=== PATIENT | female | born 1970 | race Caucasian/White ===

== ENCOUNTER 2018-11-08 07:45 | Emergency (ER) | payer OTHER ==
[~2018-11-08] VITALS: Ht 162.5 cm; Wt 81.6 kg
[2018-11-08 08:30] LABS: BASO % 0.7 % (0.0-1.0); EOS # 0.2 10*3/uL (0.0-0.4); EOS % 3.1 % (1.0-4.0); HEMOGLOBIN 14.6 g/dl (12.0-16.0); LYMPH # 1.2 10*3/uL (1.3-4.4); LYMPH % 22.2 % (27.0-41.0); MEAN CELL VOLUME 95.3 fl (81.0-99.0); MEAN CORPUSCULAR HGB 32.4 pg (27.0-31.0); MEAN PLATELET VOLUME 9.7 fl (9.6-12.3); MONO # 0.4 10*3/uL (0.1-1.0); MONO % 7.8 % (3.0-9.0); NEUT # 3.5 10*3/uL (2.3-7.9); NEUT % 65.6 % (47.0-73.0); PLATELET COUNT AUTOMATED 225 10*3/uL (130-400); RED BLOOD COUNT 4.51 10*6/uL (4.10-5.10); RED CELL DISTRI WIDTH 12.5 % (0-14.5); WHITE BLOOD COUNT 5.4 10*3/uL (4.8-10.8)
[2018-11-08 08:41] LABS: BUN 11 mg/dl (7-24); CHLORIDE 107 mmol/L (98-107); CREATININE 0.84 mg/dL (0.55-1.02); POTASSIUM 3.5 mmol/L (3.5-5.1); SODIUM 137 mmol/L (136-145); URIC ACID 4.3 mg/dL (2.6-6.0)
[2018-11-08] MEDS ORDERED: INDOMETHACIN50 MG PO (09:12)
== END 2018-11-08 09:16 | disposition home or self-care (01) ==
LOC: ED 07:45
PROVIDERS: Podiatrist Foot & Ankle Surgery
DX: M25.561 Pain in right knee (principal); Z88.2 Allergy status to sulfonamides; Z88.6 Allergy status to analgesic agent

== ENCOUNTER 2019-04-21 17:44 | Emergency (ER) | payer OTHER ==
[~2019-04-21 17:44] MED LIST: INDOMETHACIN50 MG PO
== END 2019-04-21 19:21 | disposition home or self-care (01) ==
LOC: ED 17:44
DX: B27.90 Infectious mononucleosis, unspecified without complication (principal); R59.0 Localized enlarged lymph nodes; Z88.2 Allergy status to sulfonamides; Z88.6 Allergy status to analgesic agent

== ENCOUNTER 2019-08-24 11:02 | Emergency (ER) | payer OTHER ==
[~2019-08-24] VITALS: Ht 165.1 cm; Wt 81.6 kg
[2019-08-24] MEDS ORDERED: LIDEX 0.05% CRE15 GM T ×2 (12:00→12:01)
== END 2019-08-24 12:04 | disposition home or self-care (01) ==
LOC: ED 11:02
DX: R21 Rash and other nonspecific skin eruption (principal); Z88.8 Allergy status to other drugs, medicaments and biological substances; Z88.2 Allergy status to sulfonamides

== ENCOUNTER 2019-10-11 14:33 | Emergency (ER) | payer OTHER ==
[~2019-10-11] VITALS: Ht 160 cm; Wt 74.8 kg
[~2019-10-11 14:33] MED LIST changes: +LIDEX 0.05% CRE15 GM T
== END 2019-10-11 16:24 | disposition home or self-care (01) ==
LOC: ED 14:33
DX: S09.90XA Unspecified injury of head, initial encounter (principal); R42 Dizziness and giddiness; R11.0 Nausea; Z88.2 Allergy status to sulfonamides; Z88.6 Allergy status to analgesic agent; W22.8XXA Striking against or struck by other objects, initial encounter; Y93.89 Activity, other specified; Y92.89 Other specified places as the place of occurrence of the external cause; Y99.8 Other external cause status

== ENCOUNTER 2020-02-26 23:01 | Emergency (ER) | payer OTHER ==
[~2020-02-26] VITALS: Ht 162.5 cm; Wt 74.8 kg
[2020-02-26] MEDS ORDERED: PROAIR HFA8.5 GM INH (23:30)
[2020-02-26] MEDS ORDERED: AIRDUO DIGIHAL1 EACH INH (23:30)
== END 2020-02-27 02:22 | disposition home or self-care (01) ==
LOC: ED 23:01
DX: S46.911A Strain of unspecified muscle, fascia and tendon at shoulder and upper arm level, right arm, initial encounter (principal); S46.812A Strain of other muscles, fascia and tendons at shoulder and upper arm level, left arm, initial encounter; Z88.2 Allergy status to sulfonamides; Z88.6 Allergy status to analgesic agent; W22.8XXA Striking against or struck by other objects, initial encounter; Y93.89 Activity, other specified; Y92.89 Other specified places as the place of occurrence of the external cause; Y99.0 Civilian activity done for income or pay

== ENCOUNTER 2020-05-09 12:58 | Emergency (ER) | payer OTHER ==
[~2020-05-09] VITALS: Ht 165.1 cm; Wt 857.3 kg
[~2020-05-09 12:58] MED LIST changes: +AIRDUO DIGIHAL1 EACH INH; +PROAIR HFA8.5 GM INH
[2020-05-09] MEDS ORDERED: IBU800 MG PO (15:03)
== END 2020-05-09 15:13 | disposition home or self-care (01) ==
LOC: ED 12:58
DX: S86.911A Strain of unspecified muscle(s) and tendon(s) at lower leg level, right leg, initial encounter (principal); Z88.2 Allergy status to sulfonamides; Z88.6 Allergy status to analgesic agent; Z79.899 Other long term (current) drug therapy; Z98.890 Other specified postprocedural states; X50.0XXA Overexertion from strenuous movement or load, initial encounter; Y93.89 Activity, other specified; Y92.89 Other specified places as the place of occurrence of the external cause; Y99.8 Other external cause status

== ENCOUNTER 2020-07-09 20:31 | Emergency (ER) | payer OTHER ==
[~2020-07-09 20:31] MED LIST changes: +IBU800 MG PO
[2020-07-09] MEDS ORDERED: CYCLOBENZAPRINE5 M3 PO (23:10)
[2020-07-09] MEDS ORDERED: MEDROL DOSEPAK4 MG PO (23:10)
[2020-07-09] MEDS ORDERED: Motrin,Rufen800 MG PO (23:10)
== END 2020-07-10 00:01 | disposition home or self-care (01) ==
LOC: ED 20:31
DX: M54.16 Radiculopathy, lumbar region (principal); M79.605 Pain in left leg; Z88.2 Allergy status to sulfonamides; Z79.899 Other long term (current) drug therapy; Z98.890 Other specified postprocedural states

== ENCOUNTER → 2020-08-27 | Outpatient (CLI) | payer OTHER ==
[~2020-08-27] MED LIST changes: +CYCLOBENZAPRINE5 M3 PO; +MEDROL DOSEPAK4 MG PO; +Motrin,Rufen800 MG PO
== END | disposition home or self-care (01) ==
LOC: RAD 08:03
PROVIDERS: ATTEND Nurse Practitioner Family
DX: M16.12 Unilateral primary osteoarthritis, left hip (principal); M25.752 Osteophyte, left hip

== ENCOUNTER 2020-10-21 00:57 | Emergency (ER) | payer OTHER ==
[~2020-10-21] VITALS: Ht 162.5 cm; Wt 77.1 kg
== END 2020-10-21 08:21 | disposition home or self-care (01) ==
LOC: ED 00:57
DX: M79.651 Pain in right thigh (principal); M79.604 Pain in right leg; Z88.2 Allergy status to sulfonamides; Z88.6 Allergy status to analgesic agent; X58.XXXA Exposure to other specified factors, initial encounter; Y93.89 Activity, other specified; Y92.89 Other specified places as the place of occurrence of the external cause; Y99.8 Other external cause status

== ENCOUNTER 2021-09-08 11:44 | Emergency (ER) | payer OTHER ==
[~2021-09-08] VITALS: Wt 81.6 kg
== END 2021-09-08 14:08 | disposition home or self-care (01) ==
LOC: ED 11:44
DX: S46.911A Strain of unspecified muscle, fascia and tendon at shoulder and upper arm level, right arm, initial encounter (principal); Z88.2 Allergy status to sulfonamides; Z88.6 Allergy status to analgesic agent; Z79.899 Other long term (current) drug therapy; Z98.890 Other specified postprocedural states; Z90.89 Acquired absence of other organs; X50.0XXA Overexertion from strenuous movement or load, initial encounter; Y93.89 Activity, other specified; Y92.69 Other specified industrial and construction area as the place of occurrence of the external cause; Y99.0 Civilian activity done for income or pay

== ENCOUNTER 2022-06-14 09:20 | Emergency (ER) | payer OTHER ==
[~2022-06-14] VITALS: Ht 160 cm; Wt 77.1 kg
[2022-06-14] MEDS ORDERED: ERYTHROMYCIN OPH1 GM OPH (09:49)
== END 2022-06-14 09:51 | disposition home or self-care (01) ==
LOC: ED 09:20
DX: H01.005 Unspecified blepharitis left lower eyelid (principal); Z88.2 Allergy status to sulfonamides; Z88.6 Allergy status to analgesic agent; Z88.5 Allergy status to narcotic agent; Z90.89 Acquired absence of other organs; Z98.890 Other specified postprocedural states; Z88.8 Allergy status to other drugs, medicaments and biological substances

== ENCOUNTER 2022-07-14 12:03 | Emergency (ER) | payer OTHER ==
[~2022-07-14] VITALS: Wt 81.6 kg
[~2022-07-14 12:03] MED LIST changes: +ERYTHROMYCIN OPH1 GM OPH
== END 2022-07-14 14:11 | disposition home or self-care (01) ==
LOC: ED 12:03
DX: S09.93XA Unspecified injury of face, initial encounter (principal); Z88.2 Allergy status to sulfonamides; Z88.6 Allergy status to analgesic agent; Z88.5 Allergy status to narcotic agent; Z90.89 Acquired absence of other organs; Z98.890 Other specified postprocedural states; Z88.8 Allergy status to other drugs, medicaments and biological substances; W22.8XXA Striking against or struck by other objects, initial encounter; Y93.89 Activity, other specified; Y92.89 Other specified places as the place of occurrence of the external cause; Y99.8 Other external cause status

== ENCOUNTER 2022-10-24 14:04 | Emergency (ER) | payer OTHER ==
[~2022-10-24] VITALS: Ht 160 cm; Wt 77.1 kg
[2022-10-24] MEDS ORDERED: PREDNISONE50 MG PO (14:51)
[2022-10-24] MEDS ORDERED: CYCLOBENZAPRINE10 MG PO (14:51)
== END 2022-10-24 15:01 | disposition home or self-care (01) ==
LOC: ED 14:04
DX: S46.912A Strain of unspecified muscle, fascia and tendon at shoulder and upper arm level, left arm, initial encounter (principal); S60.949A Unspecified superficial injury of unspecified finger, initial encounter; Z88.2 Allergy status to sulfonamides; Z88.6 Allergy status to analgesic agent; Z79.899 Other long term (current) drug therapy; Z98.890 Other specified postprocedural states; Z90.89 Acquired absence of other organs; X50.1XXA Overexertion from prolonged static or awkward postures, initial encounter; Y93.89 Activity, other specified; Y92.098 Other place in other non-institutional residence as the place of occurrence of the external cause; Y99.8 Other external cause status

== ENCOUNTER 2023-05-21 19:58 | Emergency (ER) | payer OTHER ==
[~2023-05-21] VITALS: Ht 167.6 cm; Wt 77.1 kg
[~2023-05-21 19:58] MED LIST changes: +CYCLOBENZAPRINE10 MG PO; +PREDNISONE50 MG PO
[2023-05-21 20:19] LABS: BASO # 0.1 10*3/uL (0.0-0.1); BASO % 0.8 % (0.0-1.0); EOS # 0.3 10*3/uL (0.0-0.4); EOS % 3.3 % (1.0-4.0); HEMATOCRIT 42.7 % (37.0-47.0); LYMPH # 2.1 10*3/uL (1.3-4.4); MEAN CELL VOLUME 90.1 fl (81.0-99.0); MEAN CORPUSCULAR HGB CONC 33.3 g/dl (33.0-37.0); MEAN PLATELET VOLUME 9.1 fl (9.6-12.3); MONO # 0.5 10*3/uL (0.1-1.0); MONO % 7.1 % (3.0-9.0); NEUT # 4.6 10*3/uL (2.3-7.9); NEUT % 60.4 % (47.0-73.0); PLATELET COUNT AUTOMATED 283 10*3/uL (130-400); RED BLOOD COUNT 4.74 10*6/uL (4.10-5.10); RED CELL DISTRI WIDTH 12.5 % (0-14.5); WHITE BLOOD COUNT 7.6 10*3/uL (4.8-10.8)
[2023-05-21 20:33] LABS: BUN 13 mg/dl (9-23); CHLORIDE 106 mmol/L (98-107); POTASSIUM 3.4 mmol/L (3.4-5.1)
[2023-05-21] MEDS ORDERED: ZITHROMAX250 MG PO (21:20)
[2023-05-21] MEDS ORDERED: AZITHROMYCIN 250 MG TAB PO ONE (21:20)
== END 2023-05-21 22:00 | disposition home or self-care (01) ==
LOC: ED 19:58
PROVIDERS: Nurse Practitioner Family
DX: J02.9 Acute pharyngitis, unspecified (principal); Z20.822 Contact with and (suspected) exposure to COVID-19; Z88.2 Allergy status to sulfonamides; Z88.5 Allergy status to narcotic agent; Z90.89 Acquired absence of other organs; Z98.890 Other specified postprocedural states

== ENCOUNTER 2023-06-25 17:40 | Emergency (ER) | payer OTHER ==
[~2023-06-25] VITALS: Ht 160 cm; Wt 87.1 kg
[~2023-06-25 17:40] MED LIST changes: +ZITHROMAX250 MG PO
== END 2023-06-25 20:22 | disposition home or self-care (01) ==
LOC: ED 17:40
DX: S93.401A Sprain of unspecified ligament of right ankle, initial encounter (principal); S80.01XA Contusion of right knee, initial encounter; Z88.2 Allergy status to sulfonamides; Z88.5 Allergy status to narcotic agent; Z90.89 Acquired absence of other organs; Z98.890 Other specified postprocedural states; X58.XXXA Exposure to other specified factors, initial encounter; Y93.89 Activity, other specified; Y92.009 Unspecified place in unspecified non-institutional (private) residence as the place of occurrence of the external cause; Y99.0 Civilian activity done for income or pay

== ENCOUNTER 2024-09-21 20:13 | Emergency (ER) | payer OTHER ==
[~2024-09-21] VITALS: Ht 162.5 cm; Wt 81.6 kg
[2024-09-21] MEDS ORDERED: NAPROXEN 250 MG TAB PO ONE (21:05)
[2024-09-21] MEDS ORDERED: TRAMADOL HCL50 MG PO (22:55)
[2024-09-21] MEDS ORDERED: NAPROSYN500 MG PO (22:55)
== END 2024-09-21 23:34 | disposition home or self-care (01) ==
LOC: ED 20:13
DX: S83.422A Sprain of lateral collateral ligament of left knee, initial encounter (principal); M25.462 Effusion, left knee; Z88.2 Allergy status to sulfonamides; Z88.8 Allergy status to other drugs, medicaments and biological substances; Z90.89 Acquired absence of other organs; Z98.890 Other specified postprocedural states; X50.9XXA Other and unspecified overexertion or strenuous movements or postures, initial encounter; Y93.89 Activity, other specified; Y92.89 Other specified places as the place of occurrence of the external cause; Y99.8 Other external cause status